=== PATIENT | male | born 1945 | race Caucasian/White ===

== ENCOUNTER 2022-07-06 03:38 | Emergency (ER) | payer MEDICARE ==
[2022-07-06] MEDS ORDERED: Sodium Chloride 0.9% 10 ML Syringe FLUSH PRN (03:44)
[2022-07-06] MEDS ORDERED: Adenosine 6 MG/2 ML SDV IVPUSH ONE ×2 (03:46→04:04)
[2022-07-06] MEDS ORDERED: Adenosine 6 MG/2 ML SDV ONE (03:58)
[2022-07-06 04:07] LABS: HEMATOCRIT 29.7 % (38.4-49.7); HEMOGLOBIN 9.8 g/dL (12.9-16.9); MEAN CORPUSCULAR HEMOGLOBIN 33.2 pg (31.6-35.5); MEAN CORPUSCULAR VOLUME 100.7 fL (81.4-99.0); PLATELET COUNT,PLT 51 K/uL (130-375); RED BLOOD CELL COUNT 2.95 M/uL (4.14-5.76)
[2022-07-06 04:27] LABS: PROTHROMBIN TIME 10.4 sec (9.2-10.6)
[2022-07-06 04:33] LABS: WHITE BLOOD CELL COUNT,WBC 58.7 K/uL (3.2-11.0)
[2022-07-06 04:36] LABS: A/G RATIO 0.8 (1.2-2.2); ALANINE AMINOTRANSFERASE,ALT 12 U/L (12-78); ALBUMIN 2.2 g/dL (3.4-5.0); ALKALINE PHOSPHATASE 205 U/L (46-116); ASPARTATE AMNIOTRANSFERASE,AST 30 U/L (15-37); BAND ABSOLUTE MAN 0.59 K/uL; BAND PERCENT MAN 1 % (5-11); BILIRUBIN TOTAL 1.2 mg/dL (0.2-1.0); BLAST ABSOLUTE MAN 16.44 K/uL (0-0); BLASTS PERCENT MAN 28 %; BLOOD UREA NITROGEN,BUN 27 mg/dL (7-18); CALCIUM 8.9 mg/dL (8.5-10.1); CARBON DIOXIDE,CO2 28 mmol/L (21-32); CHLORIDE,CL 103 mmol/L (100-108); CREATININE 2.1 mg/dL (0.8-1.3); EST CRCL DRUG DOSING (CG) 29.46 mL/min; ESTIMATED GFR 32 mL/min (>60); GLUCOSE RANDOM 93 mg/dL (74-106); LYMPHOCYTES ABSOLUTE MAN 2.35 K/uL (0.8-3.3); LYMPHOCYTES PERCENT MAN 4 % (24-44); MONOCYTES ABSOLUTE MAN 8.22 K/uL (0.20-0.90); MONOCYTES PERCENT MAN 14 % (2-6); NEUTROPHILS ABSOLUTE MAN 6.46 K/uL (1.0-7.6); POTASSIUM,K 4.7 mmol/L (3.6-5.2); PROMYELOCYTE ABSOLUTE MAN 24.65 K/uL; PROMYELOCYTE PERCENT MAN 42 %; PROTEIN TOTAL,TP 5.1 g/dL (6.4-8.2); SEG NEUTROPHILS PERCENT MAN 11 % (36-66); SODIUM,NA 137 mmol/L (140-148); TROPONIN I HIGH SENSITIVITY 13.9 pg/mL (<=60.3); TSH ULTRASENSITIVE 7.186 uIU/mL (0.358-3.740)
[2022-07-06 04:40] LABS: ANION GAP 10.7 mmol/L (5.0-14.0)
[2022-07-06] MEDS ORDERED: Sodium Chloride 0.9% 1,000 ML IV SCH (05:00)
== END 2022-07-06 15:10 ==
LOC: JP.ED 03:38
DX: C83.17 Mantle cell lymphoma, spleen (principal); C85.90 Non-Hodgkin lymphoma, unspecified, unspecified site; E07.81 Sick-euthyroid syndrome; D69.6 Thrombocytopenia, unspecified; N18.32 Chronic kidney disease, stage 3b; I50.33 Acute on chronic diastolic (congestive) heart failure; Z20.822 Contact with and (suspected) exposure to COVID-19
CPT/HCPCS: 36415; 71045; 80053; 83880; 84439; 84443; 84484; 85025; 85610; 85730; 93005; 96361; 96374; 99285; J0153; J3490; J7030; U0002